=== PATIENT | male | born 1945 | race Caucasian/White ===

== ENCOUNTER 2017-08-05 06:23 | Emergency (ER) | payer OTHER ==
[~2017-08-05] VITALS: Ht 177.8 cm; Wt 77.1 kg
[~2017-08-05 06:23] MED LIST: ASPI81CH PO; Carbamazepine200 MG PO; Hydrochloroth12.5 MG PO; LISI20 PO; Norco 5-325 Ta1 EACH PO; Pravastatin Sod20 MG PO; Ultram50 MG PO
[2017-08-05] MEDS ORDERED: Cheratussin AC118 ML PO (08:33)
== END 2017-08-05 08:41 | disposition home or self-care (01) ==
LOC: ER 06:23
DX: J20.9 Acute bronchitis, unspecified (principal); I10 Essential (primary) hypertension; G40.909 Epilepsy, unspecified, not intractable, without status epilepticus; Z79.899 Other long term (current) drug therapy; Z79.82 Long term (current) use of aspirin
CPT/HCPCS: 71046; 99283

== ENCOUNTER 2020-06-12 18:25 | Inpatient (IN) | payer OTHER ==
[~2020-06-12] VITALS: Ht 175.3 cm; Wt 89.2 kg
[~2020-06-12 18:25] MED LIST changes: -ASPI81CH PO; +ATOR80 PO; +Aspirin EC81 MG PO; +CARB200 PO; -Carbamazepine200 MG PO; +Cheratussin AC118 ML PO
[2020-06-12 19:01] LABS: BASOPHILS ABSOLUTE AUTO 0.02 K/mm3 (0.00-0.23); BASOPHILS PERCENT AUTO 0 % (0-2); EOSINOPHILS ABSOLUTE AUTO 0.09 K/mm3 (0.00-0.68); EOSINOPHILS PERCENT AUTO 1 % (0-6); Hematocrit 48.3 % (37.0-53.0); Hemoglobin 16.8 g/dL (13.5-17.5); IMMATURE GRAN ABSOLUTE AUTO 0.01 K/mm3 (0.00-0.10); IMMATURE GRAN PERCENT AUTO 0 % (0-1); LYMPHOCYTES ABSOLUTE AUTO 1.93 K/mm3 (0.84-5.20); LYMPHOCYTES PERCENT AUTO 28 % (21-46); MONOCYTES ABSOLUTE AUTO 0.53 K/mm3 (0.16-1.47); MONOCYTES PERCENT AUTO 8 % (4-13); Mean Corpuscular HGB 31.4 pg (26.0-34.0); Mean Corpuscular HGB Conc 34.8 g/dL (31.5-36.5); Mean Corpuscular Volume 90 fL (80-100); Mean Platelet Volume 8.8 fL (9.1-12.4); NEUTROPHILS ABSOLUTE AUTO 4.26 K/mm3 (1.96-9.15); NEUTROPHILS PERCENT AUTO 62 % (41-73); Platelet Count 252 K/mm3 (150-400); RDW Coefficient Variation 11.7 % (11.7-14.2); RDW Standard Deviation 38.5 fL (35.1-46.3); Red Blood Cell Count 5.35 M/mm3 (4.30-5.90); White Blood Cell Count 6.84 K/mm3 (4.00-11.30)
[2020-06-12 19:21] LABS: Alanine Aminotransfer (ALT/SGP 27 U/L (12-78); Albumin, Blood 3.3 g/dL (3.4-5.0); Albumin/Globulin Ratio 0.9 (0.8-1.8); Alk Phos 92 U/L (50-136); Anion Gap 4 mmol/L (6-16); Aspartate Aminotrans (AST/SGOT 24 U/L (12-37); Bilirubin, Total 0.4 mg/dL (0.1-1.0); Blood Urea Nitrogen 13 mg/dL (8-24); Bun/Creatinine Ratio 15.1 (12.0-20.0); CO2, Blood 24 mmol/L (21-32); Calcium, Blood 9.1 mg/dL (8.5-10.1); Chloride, Blood 106 mmol/L (98-108); Creatinine, Blood 0.86 mg/dL (0.60-1.20); Globulin, Blood 3.8 g/dL (2.2-4.0); Glomerular Filtration Rate >60 (60-); Glucose, Blood 146 mg/dL (70-99); Potassium, Blood 4.4 mmol/L (3.5-5.5); Sodium, Blood 134 mmol/L (136-145); Total Protein, Blood 7.1 g/dL (6.4-8.2)
[2020-06-12 20:48] LABS: Magnesium, Blood 2.3 mg/dL (1.6-2.4); Phosphorus, Blood 2.2 mg/dL (2.5-4.9); Troponin I <0.015 ng/mL (0.000-0.040)
[2020-06-13] MEDS ORDERED: ATOR20 PO (01:57)
[2020-06-13] MEDS ORDERED: ABAT250V (01:58)
--- NOTE | 2020-06-13 06:18 | NUR ---
SHIFT SUMMARY NEW ER ADMIT THIS SHIFT (0235), A&O X4, COOPERATIVE W/CARE, ST BY ASSIST D/T SOB W/ACTIVITY, CALLS APPROP, SLEPT T/O THE NIGHT WAKING W/PERIODS OF DRY COUGHING, MEDICATED PER JUL FOR COUGH,SLEEPING AT THIS TIME, CALL LIGHT IN REACH, WILL CONT TO MONITOR UNTIL REPORT GIVEN TO DAY RN.
--- NOTE | 2020-06-13 17:22 | NUR ---
SHIFT SUMMARY PT HAS HAD NO COMPLAINTS OF SHORTNESS OF BREATH THIS SHIFT. TESSALON PERLES GIVEN FOR COUGH. PT HAS PLAN FOR THORACENTESIS TOMORROW. PT ON ROOM AIR. RIGHT EYE RED WITH SECRETIONS, CAUSING EYE TO BE MATTED. DR. GOMEZ WAS CALLED AND ANTIBIOTIC OINTMENT ORDERED TO START THIS EVENING. NO ACUTE CHANGES THIS SHIFT. CALL LIGHT IN REACH. WILL CONTINUE TO MONITOR AND REPORT TO ONCOMING RN.
--- NOTE | 2020-06-13 17:59 | NUR ---
ADMIT: 06/12/20 DISCHARGE: DX: lung mass CC: cpeabody ALECIA CALL: Call Dario at home for transition of care and follow up appointment RESIDENCE: home, CAREGIVER: Everettea contact: MATTHEW CARDENAS (CHILD) lives next door, available to help if needed. DX: htn, epilepsy, insomnia, hernia, hyperlipidemia, lung mass DME: no record CCM: no record HOME HEALTH: no record SUMMARY: Admit 06/12/20 06/13/[address] Vallejo, scheduled for Thorensentisis Friday, expects discharge home after procedure. Met with Dario in his room, lives alone but has natural support of daughter that lives next door. He does not require any mobility equipment, drives, shops. Provides his own self care. Discussed ALECIA and care coordination. Did not identify any needs at this time. Left him with discharge information, [facility] to call or Friday. Daughter will pick him up from hospital. IMPRESSION: 1. 10 x 6 x 6 cm subcarinal mass extending into the right hilum with postobstructive right lower lobe pneumonia and large right pleural effusion. We will consult Pulmonology for further workup. The patient started on Rocephin and Zithromax and BD protocol.
--- NOTE | 2020-06-14 04:08 | NUR ---
SHIFT SUMMARY ADMITTED FOR LUNG MASS/SOB. ALSO FOUND TO HAVE A RT LUNG PE. FULL CODE. PLAN IS FOR THORACENTESIS. THEN POSSIBLE DC HOME. PLAN IS TO FOLLOW UP RE: LUNG MASS OUTPT. PT EXPRESSES TO ME THAT HE IS FEELING ANXIOUS. I HAVE PROCURED A ONE TIME ORDER FOR ANXIETY MEDICATION FOR HIS ANXIETY. EYE GEL APPLIED DIRECTED.
[2020-06-14 07:24] LABS: International Normalized Ratio 0.98; Prothrombin Time Results 10.5 Sec (9.7-11.5)
[2020-06-14 10:24] LABS: Automated BF RBC Count 0.011 M/mm3 (0-0); Automated BF WBC Count 1.423 K/mm3 (0-999); Body Fluid WBC Count 1423 /mm3 (0-999); RBC Count, Body Fluid 11000 /mm3 (0-0)
[2020-06-14 10:47] LABS: Protein, Body Fluid 4.3 g/dL
[2020-06-14 10:52] LABS: Cholesterol, Body Fluid 77 mg/dL
[2020-06-14 10:53] LABS: Glucose, Body Fluid 149 mg/dL
[2020-06-14 10:59] LABS: pH, Body Fluid 7.9
[2020-06-14 11:20] LABS: Total Cell Count, Body Fluid 100
[2020-06-14 11:21] LABS: Color, Body Fluid Yellow (None-Yellow)
[2020-06-14 11:22] LABS: Appearance, Body Fluid Cloudy (Clear)
[2020-06-14] MEDS ORDERED: AZIT250 PO (11:47)
[2020-06-14] MEDS ORDERED: BENZ100A PO (11:48)
[2020-06-14] MEDS ORDERED: ERYT.5TO RIGHTEYE (11:49)
[2020-06-14] MEDS ORDERED: CEFD300 PO (11:50)
--- NOTE | 2020-06-14 12:06 | NUR ---
DISCHARGE INSTRUCTIONS REVIEWED WITH PATIENT. ALL QUESTIONS ANSWERED. IV REMOVED. PATIENT TO HAVE F/U APPOINTMENTS WITH HIS PCP AND PULMONOLOGY S/P DISCHARGE. PATIENT IS IN HIS ROOM PREPPING FOR DISCHARGE AT THIS TIME.
--- NOTE | 2020-06-14 12:54 | NUR ---
PATIENT DISCHARGED HOME AT 1240. i ESCORTED PATIENT TO THE PATIENT ENTERENCE VIA WHEELCHAIR. SON TO TRANSPORT HOME.
--- NOTE | 2020-06-14 13:39 | NUR ---
SUMMARY: Admit 06/12/20 06/14/20 Discharge home today, Danica kim, has family to pick him up. Did not identify any discharge needs. Pamela will call Dario at home Th or Fri for transition of care and follow up appointment.
== END 2020-06-14 12:53 | disposition home or self-care (01) | DRG 194 ==
LOC: ER 18:25 → MEDS 06-13 01:24
PROVIDERS: Emergency Medicine; Family Medicine; Internal Medicine Critical Care Medicine; Physician Assistant; ADMIT Family Medicine
PROC: 0W993ZX Drainage of Right Pleural Cavity, Percutaneous Approach, Diagnostic (ICD-10-PCS; principal; 2020-06-14)
DX: J18.9 Pneumonia, unspecified organism (principal); E87.1 Hypo-osmolality and hyponatremia; C34.01 Malignant neoplasm of right main bronchus; J91.0 Malignant pleural effusion; Z20.822 Contact with and (suspected) exposure to COVID-19; G40.909 Epilepsy, unspecified, not intractable, without status epilepticus; E78.5 Hyperlipidemia, unspecified; H10.31 Unspecified acute conjunctivitis, right eye; I11.0 Hypertensive heart disease with heart failure; I50.9 Heart failure, unspecified; Z87.891 Personal history of nicotine dependence
CPT/HCPCS: 32555; 36415; 71045; 71260; 80053; 82465; 82945; 83735; 83880; 83986; 84100; 84157; 84484; 85025; 85379; 85610; 85730; 87070; 87205; 88108; 88305; 88341; 88342; 89051; 93005; 93010; 93970; 96374; 99284-25; A9270; J0696; J2060; J7050; Q2038; Q9967

== ENCOUNTER 2020-06-20 03:18 | Observation (INO) | payer OTHER ==
[~2020-06-20] VITALS: Ht 175.3 cm; Wt 89.1 kg
[~2020-06-20 03:18] MED LIST changes: +ABAT250V; +ATOR20 PO; +AZIT250 PO; +BENZ100A PO; +CEFD300 PO; +ERYT.5TO RIGHTEYE
[2020-06-20 04:31] LABS: BASOPHILS ABSOLUTE AUTO 0.03 K/mm3 (0.00-0.23); BASOPHILS PERCENT AUTO 1 % (0-2); EOSINOPHILS ABSOLUTE AUTO 0.07 K/mm3 (0.00-0.68); EOSINOPHILS PERCENT AUTO 1 % (0-6); Hematocrit 47.7 % (37.0-53.0); Hemoglobin 16.5 g/dL (13.5-17.5); IMMATURE GRAN ABSOLUTE AUTO 0.01 K/mm3 (0.00-0.10); IMMATURE GRAN PERCENT AUTO 0 % (0-1); LYMPHOCYTES PERCENT AUTO 27 % (21-46); MONOCYTES ABSOLUTE AUTO 0.45 K/mm3 (0.16-1.47); MONOCYTES PERCENT AUTO 8 % (4-13); Mean Corpuscular HGB 31.1 pg (26.0-34.0); Mean Corpuscular HGB Conc 34.6 g/dL (31.5-36.5); Mean Corpuscular Volume 90 fL (80-100); Mean Platelet Volume 8.8 fL (9.1-12.4); NEUTROPHILS ABSOLUTE AUTO 3.51 K/mm3 (1.96-9.15); NEUTROPHILS PERCENT AUTO 63 % (41-73); Platelet Count 298 K/mm3 (150-400); RDW Coefficient Variation 11.6 % (11.7-14.2); RDW Standard Deviation 38.6 fL (35.1-46.3); White Blood Cell Count 5.57 K/mm3 (4.00-11.30)
[2020-06-20 04:48] LABS: Alanine Aminotransfer (ALT/SGP 40 U/L (12-78); Albumin, Blood 3.3 g/dL (3.4-5.0); Albumin/Globulin Ratio 0.8 (0.8-1.8); Alk Phos 91 U/L (50-136); Anion Gap 6 mmol/L (6-16); Aspartate Aminotrans (AST/SGOT 32 U/L (12-37); Bilirubin, Total 0.4 mg/dL (0.1-1.0); Blood Urea Nitrogen 12 mg/dL (8-24); Bun/Creatinine Ratio 14.3 (12.0-20.0); CO2, Blood 24 mmol/L (21-32); Calcium, Blood 9.2 mg/dL (8.5-10.1); Chloride, Blood 105 mmol/L (98-108); Creatinine, Blood 0.84 mg/dL (0.60-1.20); Globulin, Blood 4.2 g/dL (2.2-4.0); Glomerular Filtration Rate >60 (60-); Glucose, Blood 118 mg/dL (70-99); Magnesium, Blood 2.2 mg/dL (1.6-2.4); Potassium, Blood 4.6 mmol/L (3.5-5.5); Sodium, Blood 135 mmol/L (136-145); Total Protein, Blood 7.5 g/dL (6.4-8.2)
[2020-06-20 16:03] LABS: Influenza A, PCR Negative (NEGATIVE); Influenza B, PCR Negative (NEGATIVE); Resp Syncytial Virus, PCR Negative (NEGATIVE); SARS-Cov-2 (COVID-19) PCR, MMC Negative (NEGATIVE)
--- NOTE | 2020-06-20 16:44 | NUR ---
ADMIT: 06/20/20 DISCHARGE: DX: Dysphagia & Lung mass CC: cpeabody ALECIA CALL: call pt at home RESIDENCE: Home by self CAREGIVER: DEVIN CONTACT: MATTHEW CARDENAS (CHILD) LIVES NEXT DOOR, AVAILABLE TO HELP IF NEEDED. HOME PHONE: DX: Small cell carcinoma, pneumonia, HTN, epilepsy, see list DME: no record CCM: no record HOME HEALTH: no record SUMMARY: Admit 06/20/20 06/20/[address] John today. No eta for discharge at this time. 1. A 74-year-old male coming in with inability to keep food and fluids down, nausea, vomiting. This occurs in the setting of a recently diagnosed lung mass, with a mediastinal component, which could be compressing the esophagus. 2. Pathology shows small cell carcinoma. 3. Apparent history of atrial fibrillation. 4. History of hypertension and epilepsy. PLAN: 1. N.p.o., fluids, pain management. 2. GI consult for consideration of upper endoscopy for further workup of his dysphagia and inability to keep food and fluids down. 3. Supportive measures. 4. Expect less than 2 days observation. 5. Full code status. 6. SCDs for DVT prophylaxis for possible interventions. ADMIT 06/12/20 06/14/20 DISCHARGE HOME TODAY, CHRISTIANO GORDON, HAS FAMILY TO PICK HIM UP. DID NOT IDENTIFY ANY DISCHARGE NEEDS.
--- NOTE | 2020-06-20 17:28 | NUR ---
06/20/20 1728 OMAIRA TRAVIS History, Chart, Medications and Allergies reviewed before start of procedure. 3-LEAD EKG REVIEWED WITH PHYSICIAN PRIOR TO START OF PROCEDURE. MONITOR INTACT WITH CONTINUOUS PULSE OXIMETRY AND INTERMITTENT BP. O2 VIA N/C INTACT THROUGHOUT SEDATION/PROCEDURE. PATIENT DETERMINED TO BE ASA APPROPRIATE FOR PROPOFOL SEDATION PRIOR TO START OF PROCEDURE BY DR. ESPOSITO.
--- NOTE | 2020-06-20 18:28 | NUR ---
SHIFT SUMMARY PT ARRIVED FROM ER AROUND 1PM. DENIES PAIN. NO NAUSEA, BUT EVERYTHING HE SWALLOWS COMES RIGHT BACK UP. TELE SHOWING NSR. PT NPO. INDEP TO BR. WENT TO ENDOSCOPY AT 1630 BUT HASN'T RETURNED YET. AWAITING HIS RETURN, HE HAD TO HAVE PROCEDURE DONE IN OR INSTEADY OF DAY SURGERY DUE TO NOT TOLERATING CONSCIOUS SEDATION PER RN PHONE CALL.
--- NOTE | 2020-06-20 18:42 | NUR ---
06/20/20 1842 OMAIRA TRAVIS History, Chart, Medications and Allergies reviewed before start of procedure. 3-LEAD EKG REVIEWED WITH PHYSICIAN PRIOR TO START OF PROCEDURE. MONITOR INTACT WITH CONTINUOUS PULSE OXIMETRY AND INTERMITTENT BP. O2 VIA N/C INTACT THROUGHOUT SEDATION/PROCEDURE. GENERAL ANESTHESIA WITH DR. RODRIGUEZ.
--- NOTE | 2020-06-21 02:42 | NUR ---
06/20/201999 Pt returned from EDG via bed. Awake and alert. Denies any discomfort or other s/s. Vitals stable. Taking sips of water and juice well. He called his family to update them on status. IV fluids restarted per MD order. Meds to be liquid form or crushed and RN spoke with Pharmacist about this order.
--- NOTE | 2020-06-21 05:29 | NUR ---
06/21/20 0510 PT AWAKE AND TAKING LIQUIDS WITHOUT PROBLEMS. OCC. COUGH THIS SHIFT BUT PT STATES HE HAS A CHRONIC COUGH. VITALS STABLE. HEART MONITOR STABLE. BREATH SOUNDS CLEAR.
[2020-06-21 05:40] LABS: BASOPHILS ABSOLUTE AUTO 0.01 K/mm3 (0.00-0.23); BASOPHILS PERCENT AUTO 0 % (0-2); EOSINOPHILS ABSOLUTE AUTO 0.02 K/mm3 (0.00-0.68); EOSINOPHILS PERCENT AUTO 0 % (0-6); Hematocrit 45.2 % (37.0-53.0); Hemoglobin 14.9 g/dL (13.5-17.5); IMMATURE GRAN ABSOLUTE AUTO 0.01 K/mm3 (0.00-0.10); IMMATURE GRAN PERCENT AUTO 0 % (0-1); LYMPHOCYTES ABSOLUTE AUTO 1.46 K/mm3 (0.84-5.20); LYMPHOCYTES PERCENT AUTO 28 % (21-46); MONOCYTES ABSOLUTE AUTO 0.42 K/mm3 (0.16-1.47); MONOCYTES PERCENT AUTO 8 % (4-13); Mean Corpuscular HGB 30.5 pg (26.0-34.0); Mean Corpuscular Volume 93 fL (80-100); Mean Platelet Volume 8.8 fL (9.1-12.4); NEUTROPHILS ABSOLUTE AUTO 3.39 K/mm3 (1.96-9.15); NEUTROPHILS PERCENT AUTO 64 % (41-73); Platelet Count 255 K/mm3 (150-400); RDW Coefficient Variation 11.5 % (11.7-14.2); RDW Standard Deviation 39.2 fL (35.1-46.3); Red Blood Cell Count 4.88 M/mm3 (4.30-5.90); White Blood Cell Count 5.31 K/mm3 (4.00-11.30)
[2020-06-21 06:21] LABS: Alanine Aminotransfer (ALT/SGP 36 U/L (12-78); Albumin, Blood 2.9 g/dL (3.4-5.0); Albumin/Globulin Ratio 0.8 (0.8-1.8); Alk Phos 82 U/L (50-136); Anion Gap 9 mmol/L (6-16); Aspartate Aminotrans (AST/SGOT 28 U/L (12-37); Bilirubin, Total 0.5 mg/dL (0.1-1.0); Blood Urea Nitrogen 10 mg/dL (8-24); Bun/Creatinine Ratio 11.4 (12.0-20.0); CO2, Blood 22 mmol/L (21-32); Calcium, Blood 8.3 mg/dL (8.5-10.1); Chloride, Blood 105 mmol/L (98-108); Creatinine, Blood 0.88 mg/dL (0.60-1.20); Globulin, Blood 3.5 g/dL (2.2-4.0); Glomerular Filtration Rate >60 (60-); Glucose, Blood 94 mg/dL (70-99); Potassium, Blood 4.8 mmol/L (3.5-5.5); Sodium, Blood 136 mmol/L (136-145); Total Protein, Blood 6.4 g/dL (6.4-8.2)
[2020-06-21] MEDS ORDERED: LOSA50 PO (14:54)
--- NOTE | 2020-06-21 16:05 | NUR ---
DISCHARGE SUMMARY MEDS FAXED TO [facility] IN [place]. PIV REMOVED. PAPERWORK GONE OVER, EDUCATED ON FULL LIQUID DIET AND PILL GEOSPATIAL INFORMATION TECHNOLOGIST GIVEN TO PT. FOLLOW UPS WITH PULMONOLOGY AND ONCOLOGY MADE FOR PT AND HE IS INFORMED OF TIME AND DATE. [facility] WILL CONTACT HIM TO SCHEDULE. NOTE: PT HAD FULL REGULAR LUNCH PER VERBAL ORDER FROM DR CHACON, AND HE CHEWED ALL FOOD VERY THOROUGHLY AND DIDN'T HAVE PROBLEMS. RECEIVED PHONE CALL FROM DR CHACON AT 1400 STATING PT NEEDS TO GO BACK ON FULL LIQUID DIET PER DR HERNANDEZ'S OR NOTE AND BE DISCHARGED ON THIS DIET. PT AWARE.
--- NOTE | 2020-06-21 17:34 | NUR ---
SUMMARY: Admit 06/20/20 Discharge 06/21/20 Home with family support if needed. Has ride home and available to the pharmacy if needed. Follow up appointment with [facility] in 1 week. [place] will contact by phone or Friday. Did not identify any care coordiantion needed at this time. Expecting [place] follow up call. Appt with Dr Vega Jul 04 2:[address] Diaz Jun 29 2:45.
== END 2020-06-21 15:24 | disposition home or self-care (01) ==
LOC: ER 03:18 → ERHOLD 03:19 → MEDS 03:19 → ERHOLD 03:19 → MEDS 12:53
PROVIDERS: Emergency Medicine; Internal Medicine Gastroenterology; ADMIT Internal Medicine
PROC: 0DC98ZZ Extirpation of Matter from Duodenum, Via Natural or Artificial Opening Endoscopic (ICD-10-PCS; principal; 2020-06-20 16:00)
DX: K22.2 Esophageal obstruction (principal); T18.128A Food in esophagus causing other injury, initial encounter; C34.01 Malignant neoplasm of right main bronchus; R59.0 Localized enlarged lymph nodes; G40.909 Epilepsy, unspecified, not intractable, without status epilepticus; I11.0 Hypertensive heart disease with heart failure; I50.9 Heart failure, unspecified; E78.5 Hyperlipidemia, unspecified; I48.91 Unspecified atrial fibrillation; E87.1 Hypo-osmolality and hyponatremia; X58.XXXA Exposure to other specified factors, initial encounter; Z20.822 Contact with and (suspected) exposure to COVID-19; Z87.891 Personal history of nicotine dependence; Z79.82 Long term (current) use of aspirin; Z79.899 Other long term (current) drug therapy
CPT/HCPCS: 0241U; 36415; 80053; 82947; 83690; 83735; 85025; 96361; 96374; 96375; 96376; 99285-25; A9270; G0378; J0330; J1430; J1610; J2370; J2405; J2704; J3010; J7030; J7120

== ENCOUNTER 2020-07-14 13:26 | Day surgery (SDC) | payer OTHER ==
[~2020-07-14] VITALS: Ht 175.3 cm; Wt 87.3 kg
[~2020-07-14 13:26] MED LIST changes: +LOSA50 PO
--- NOTE | 2020-07-14 14:23 | NUR ---
PT INTO SDS VIA W/C. History, Chart, Medications and Allergies reviewed before start of procedure. Lungs clear T/O to Auscultation. Patient confirms NPO status and agrees with scheduled surgery. Patient States Post-Procedure ride home has been arranged.
--- NOTE | 2020-07-14 17:29 | NUR ---
Patient up to Ambulate independently. Gait steady. Discharge instructions reviewed with patient. Patient verbalizes understanding. Copy given to patient to take home. Discharged via wheelchair to private car for ride home.
== END 2020-07-14 18:00 | disposition home or self-care (01) ==
LOC: ORSCMMR 13:26 → SURS 18:00
PROVIDERS: Surgery
PROC: 0B9N30Z Drainage of Right Pleura with Drainage Device, Percutaneous Approach (ICD-10-PCS; principal; 2020-07-14 14:00)
DX: C34.90 Malignant neoplasm of unspecified part of unspecified bronchus or lung (principal); J91.0 Malignant pleural effusion; I10 Essential (primary) hypertension; K21.9 Gastro-esophageal reflux disease without esophagitis; Z87.891 Personal history of nicotine dependence; Z79.899 Other long term (current) drug therapy; Z79.82 Long term (current) use of aspirin
CPT/HCPCS: 71045; C1729; J2250; J3010; J7120

== ENCOUNTER 2020-07-24 23:11 | Inpatient (IN) | payer OTHER, MEDICARE ==
[~2020-07-24] VITALS: Ht 175.3 cm; Wt 78.4 kg
[2020-07-24 23:35] LABS: BASOPHILS ABSOLUTE AUTO 0.01 K/mm3 (0.00-0.23); BASOPHILS PERCENT AUTO 1 % (0-2); Hematocrit 45.4 % (37.0-53.0); Hemoglobin 15.6 g/dL (13.5-17.5); LYMPHOCYTES ABSOLUTE AUTO 1.12 K/mm3 (0.84-5.20); LYMPHOCYTES PERCENT AUTO 61 % (21-46); MONOCYTES PERCENT AUTO 11 % (4-13); Mean Corpuscular HGB 30.2 pg (26.0-34.0); Mean Corpuscular HGB Conc 34.4 g/dL (31.5-36.5); Mean Corpuscular Volume 88 fL (80-100); Mean Platelet Volume 11.2 fL (9.1-12.4); NRBC ABSOLUTE 0.02 K/mm3 (0.00-0.02); NRBC Auto 1.1 /100 WBC (0.0-0.2); RDW Coefficient Variation 11.6 % (11.7-14.2); RDW Standard Deviation 37.4 fL (35.1-46.3); Red Blood Cell Count 5.16 M/mm3 (4.30-5.90); White Blood Cell Count 1.85 K/mm3 (4.00-11.30)
[2020-07-24] MEDS ORDERED: DEXA4 PO (23:35)
[2020-07-24] MEDS ORDERED: Ventolin/Prove6.7 GM INH (23:36)
[2020-07-24 23:37] LABS: EOSINOPHILS PERCENT AUTO 0 % (0-6); IMMATURE GRAN ABSOLUTE AUTO 0.01 K/mm3 (0.00-0.10); IMMATURE GRAN PERCENT AUTO 1 % (0-1); NEUTROPHILS ABSOLUTE AUTO 0.51 K/mm3 (1.96-9.15); NEUTROPHILS PERCENT AUTO 28 % (41-73); Platelet Count 49 K/mm3 (150-400)
[2020-07-24] MEDS ORDERED: BUSPIRONE HCL5 M1 PO (23:37)
[2020-07-24 23:51] LABS: Alanine Aminotransfer (ALT/SGP 217 U/L (12-78); Albumin, Blood 2.2 g/dL (3.4-5.0); Albumin/Globulin Ratio 0.5 (0.8-1.8); Alk Phos 195 U/L (50-136); Anion Gap 10 mmol/L (6-16); Aspartate Aminotrans (AST/SGOT 213 U/L (12-37); Bilirubin, Total 0.8 mg/dL (0.1-1.0); Blood Urea Nitrogen 16 mg/dL (8-24); Bun/Creatinine Ratio 19.7 (12.0-20.0); CO2, Blood 25 mmol/L (21-32); Calcium, Blood 8.1 mg/dL (8.5-10.1); Chloride, Blood 106 mmol/L (98-108); Creatinine, Blood 0.81 mg/dL (0.60-1.20); Globulin, Blood 4.3 g/dL (2.2-4.0); Glomerular Filtration Rate >60 (60-); Glucose, Blood 142 mg/dL (70-99); Potassium, Blood 3.7 mmol/L (3.5-5.5); Sodium, Blood 141 mmol/L (136-145); Total Protein, Blood 6.5 g/dL (6.4-8.2); Troponin I 0.083 ng/mL (0.000-0.040)
[2020-07-24 23:56] LABS: International Normalized Ratio 1.4; Prothrombin Time Results 14.7 Sec (9.7-11.5)
[2020-07-25 01:36] LABS: Influenza A, PCR NEGATIVE (NEGATIVE); Influenza B, PCR NEGATIVE (NEGATIVE); Resp Syncytial Virus, PCR NEGATIVE (NEGATIVE); SARS-Cov-2 (COVID-19) PCR, MMC NEGATIVE (NEGATIVE)
--- NOTE | 2020-07-25 04:30 | NUR ---
ANTIBIOTICS PREVIOSLY ORDERED IN ER, HAD NOT BEEN GIVEN DUE TO DIFFICULT IV ACCESS. PT ARRIVES TO ICU AND DR GANDHI STATES TO DC ANTIBIOTICS AT THIS TIME.
--- NOTE | 2020-07-25 05:39 | NUR ---
ADMIT PT ARRIVES TO ICU 8 AT 0315 FROM ED VIA GURNEY. PT AWAKE, ALERT, ORIENTED X4, PT APPEARS DYSPNEIC ON ARRIVAL, ON 12L/MIN O2 VIA NON-REBREATHER, SPO2 98%. MONITOR SHOWING SINUS TACHYCARDIA WITH HR 110'S, SBP STABLE. PLEURX DRAIN IN PLACE TO RIGHT CHEST - PT STATES THIS IS DRAINED APPROX 1 L ON EVERY FRIDAY, FRIDAY AND FRIDAY. WAS JUST DRAINED YESTERDAY BY HIS DAUGHTER. GAUZE DRESSING IN PLACE, C/D/I. LUNG SOUNDS CLEAR T/O. ABDOMEN SOFT, NON-TENDER, BT'S X4. SUN PLACED, DRAINING ONEIL/PINK URINE TO GRAVITY. POWERGLIDE PLACED TO FELICIA - NS INFUSING AT 75ML/HR AND HEPARIN GTT AT 15 UNITS/KG PER ORDERS. SKIN OVERALL C/D/I. PLAN FOR ECHO THIS AM AND CONSULT DR. Meehan. PT DENIES PAIN, OTHER NEEDS AT THIS TIME. WILL CONTINUE TO MONITOR PT AND GIVE HANDOFF REPORT TO ONCOMING SHIFT.
--- NOTE | 2020-07-25 08:03 | NUR ---
echocardiogram complete
[2020-07-25 08:06] LABS: Source, Urine Catheter
[2020-07-25 08:12] LABS: Appearance, Urine Clear (Clear); Bilirubin, Urine Neg (Neg); Blood, Urine 1+ (Neg); Color, Urine Yellow (P-Yellow); Glucose Qualitative, Urine Neg (Neg); Ketones, Urine 1+ (Neg); Leukocyte Esterase, Urine 1+ (Neg); Nitrite, Urine Neg (Neg); Protein, Urine 2+ (Neg); Specific Gravity, Urine 1.005 (1.003-1.022); Urobilinogen, Urine 1+ (Normal)
[2020-07-25 08:23] LABS: Bacteria Rare /hpf; Red Blood Cells, Urine 0-2 /hpf (0-2); Squamous Epithelial Cells Rare /hpf (Few); White Blood Cells, Urine 0-2 /hpf (0-5)
--- NOTE | 2020-07-25 08:30 | NUR ---
ASSUMED CARE BEDSIDE REPORT RECIEVED. PT IS LAYING IN BED RESTING QUIETLY. PT AWAKENS TO VERBAL STIMULI. PT IS ALERT AND ORIENTED WHEN AWAKE. PT IS TALKATIVE AND EXPRESSES SOME ANXIETY ABOUT PLAN OF CARE. REASSURANCE PROVIDED. PT ON 8L O2 VIA OXYMIZER. VITAL SIGNS STABLE. POWERGLIDE TO FELICIA C/D/I. HEPARIN GTT INFUSING AT 15 UNITS/KG/HR AND NS AT 75 ML/HR. PT WITH COARSE LS AND LABORED BREATHING. NS PAUSED AT THIS TIME. PT WITH PLEURX DRAIN TO RIGHT CHEST NOTED, DRESSING C/D/I. PT WITH SUN IN PLACE, PT COMPLAINING OF BURING SENSATION AND URGE TO PUSH WHEN URINATING. SUN IRRIGATED WITHOUT DIFFICULTY. LEAKING NOTED AROUND SUN AND URETHRA. SUN DC'D AT THIS TIME. PT REQUESTS NOT TO HAVE NEW SUN PLACED AT THIS TIME. DR ELLIS NOTIFIED OF LS AND STOPPING FLUIDS. ORDERS RECIEVED TO CONSULT PULMONOLOGY. WILL CONTINUE TO MONITOR.
[2020-07-25 08:37] LABS: Hematocrit 35.5 % (37.0-53.0); Hemoglobin 12.4 g/dL (13.5-17.5); Mean Corpuscular HGB 30.6 pg (26.0-34.0); Mean Corpuscular HGB Conc 34.9 g/dL (31.5-36.5); Mean Corpuscular Volume 88 fL (80-100); Mean Platelet Volume 11.2 fL (9.1-12.4); RDW Coefficient Variation 11.8 % (11.7-14.2); RDW Standard Deviation 37.8 fL (35.1-46.3); Red Blood Cell Count 4.05 M/mm3 (4.30-5.90); White Blood Cell Count 1.92 K/mm3 (4.00-11.30)
[2020-07-25 08:42] LABS: Platelet Count 49 K/mm3 (150-400)
[2020-07-25 08:54] LABS: Alanine Aminotransfer (ALT/SGP 146 U/L (12-78); Albumin, Blood 1.8 g/dL (3.4-5.0); Albumin/Globulin Ratio 0.5 (0.8-1.8); Alk Phos 135 U/L (50-136); Anion Gap 7 mmol/L (6-16); Aspartate Aminotrans (AST/SGOT 114 U/L (12-37); Bilirubin, Total 0.6 mg/dL (0.1-1.0); Blood Urea Nitrogen 13 mg/dL (8-24); Bun/Creatinine Ratio 17.1 (12.0-20.0); CO2, Blood 29 mmol/L (21-32); Calcium, Blood 7.8 mg/dL (8.5-10.1); Chloride, Blood 105 mmol/L (98-108); Creatinine, Blood 0.76 mg/dL (0.60-1.20); Globulin, Blood 3.6 g/dL (2.2-4.0); Glomerular Filtration Rate >60 (60-); Glucose, Blood 113 mg/dL (70-99); Potassium, Blood 3.7 mmol/L (3.5-5.5); Sodium, Blood 141 mmol/L (136-145); Total Protein, Blood 5.4 g/dL (6.4-8.2)
[2020-07-25 09:16] LABS: BAND PERCENT MAN 10 % (0-8); BASOPHILS PERCENT MAN 0 % (0-2); EOSINOPHILS PERCENT MAN 0 % (0-6); LYMPHOCYTES PERCENT MAN 42 % (21-46); METAMYELOCYTE ABSOLUTE MAN 0.01 K/mm3 (0.00-0.00); METAMYELOCYTE PERCENT MAN 1 % (0-0); MONOCYTES ABSOLUTE MAN 0.13 K/mm3 (0.16-1.47); MONOCYTES PERCENT MAN 7 % (4-13); NEUTROPHILS ABSOLUTE MAN 0.96 K/mm3 (1.96-9.15); SEG NEUTROPHILS PERCENT MAN 40 % (41-73); TOTAL CELLS COUNTED 100
--- NOTE | 2020-07-25 12:17 | NUR ---
PLEURX DRAIN PLEURX DRAINED PER DR NUR'S ORDERS. 1000 ML OF BLOOD TINGED FLUID DRAINED TO VACU CONTAINER. PT WITH IMPROVEMENT IN SPO2. O2 REQUIREMENTS DECREASED TO 4L O2 VIA OXYMIZER AT THIS TIME. WILL CONTINUE TO MONITOR.
--- NOTE | 2020-07-25 14:05 | NUR ---
CARE COORDINATION REFERRAL - ADMIT: 07/25/20 DISCHARGE: DX: SHORTNESS OF BREATH CC: KWILCOX ADMIT: 06/20/20 DISCHARGE: 06/21/20 DX: DYSPHAGIA & LUNG MASS CC: CPEABODY ALECIA CALL: RESIDENCE: HOME CAREGIVER: SELF,DEVIN CONTACT: MATTHEW CARDENAS (CHILD) LIVES NEXT DOOR, AVAILABLE TO HELP IF NEEDED. DX: SMALL CELL CARCINOMA, PNEUMONIA, HTN, EPILEPSY, SEE LIST DME: NONE CCM: NONE HOME HEALTH: NONE
--- NOTE | 2020-07-25 16:54 | NUR ---
echocardiogram complete
--- NOTE | 2020-07-25 18:36 | NUR ---
SHIFT SUMMARY/DECOMPENSATION IN NETWORK DIAGNOSTIC SUPPORT SPECIALIST THIS RN CALLED TO NETWORK DIAGNOSTIC SUPPORT SPECIALIST FOR ASSISTANCE AROUND 1400. PT WITH RESPIRATORY DECOMPENSATION DURING PROCEDURE REQUIRING BIPAP PLACEMENT. PT ALSO BECAME HYPOTENSIVE REQUIRING IV PUSH NEOSYNEPHRINE GIVEN BY NETWORK DIAGNOSTIC SUPPORT SPECIALIST STAFF. PT TRANSFERED BACK TO ICU ROOM AT 1500. PT WITH RIGHT GROIN ACCESS SITE WITH DRESSING AND GAUZE IN PLACE. SMALL OOZING NOTED TO DRESSING. PT REMAINS ON BIPAP AT THIS TIME SETTINGS 10/5, FIO2 TITRATED DOWN TO 40%. PT IS SOMNOLENT, BUT IS AROUSABLE TO VERBAL STIMULI. PT MOANS OUT AT TIMES. PICC LINE PLACED TO FELICIA. NS BOLUS INFUSING AND NEOSYNEPHRINE GTT TITRATED UP TO 100 MCG/MIN AT THIS TIME. VITAL SIGNS STABLE AT THIS TIME. DR NUR AND DR DIXON HAVE SEEN PT AFTER RETURN FROM NETWORK DIAGNOSTIC SUPPORT SPECIALIST AND HAVE UPDATED PT DAUGHTER AT BEDSIDE. WILL CONTINUE TO MONITOR AND REPORT OFF TO ONCOMING RN.
[2020-07-25 19:49] LABS: Hematocrit 31.5 % (37.0-53.0)
[2020-07-26 06:39] LABS: BASOPHILS ABSOLUTE AUTO 0.03 K/mm3 (0.00-0.23); BASOPHILS PERCENT AUTO 1 % (0-2); EOSINOPHILS PERCENT AUTO 0 % (0-6); Hematocrit 31.6 % (37.0-53.0); Hemoglobin 10.7 g/dL (13.5-17.5); IMMATURE GRAN ABSOLUTE AUTO 0.21 K/mm3 (0.00-0.10); IMMATURE GRAN PERCENT AUTO 6 % (0-1); LYMPHOCYTES ABSOLUTE AUTO 1.03 K/mm3 (0.84-5.20); LYMPHOCYTES PERCENT AUTO 29 % (21-46); MONOCYTES ABSOLUTE AUTO 0.32 K/mm3 (0.16-1.47); MONOCYTES PERCENT AUTO 9 % (4-13); Mean Corpuscular HGB 30.3 pg (26.0-34.0); Mean Corpuscular HGB Conc 33.9 g/dL (31.5-36.5); Mean Corpuscular Volume 90 fL (80-100); Mean Platelet Volume 11.2 fL (9.1-12.4); NEUTROPHILS ABSOLUTE AUTO 2.01 K/mm3 (1.96-9.15); NEUTROPHILS PERCENT AUTO 56 % (41-73); NRBC ABSOLUTE 0.04 K/mm3 (0.00-0.02); NRBC Auto 1.1 /100 WBC (0.0-0.2); Platelet Count 73 K/mm3 (150-400); RDW Coefficient Variation 12.2 % (11.7-14.2); RDW Standard Deviation 39.7 fL (35.1-46.3); Red Blood Cell Count 3.53 M/mm3 (4.30-5.90)
[2020-07-26 06:44] LABS: BAND PERCENT MAN 16 % (0-8); LYMPHOCYTES ABSOLUTE MAN 0.86 K/mm3 (0.84-5.20); LYMPHOCYTES PERCENT MAN 24 % (21-46); MONOCYTES ABSOLUTE MAN 0.36 K/mm3 (0.16-1.47); MONOCYTES PERCENT MAN 10 % (4-13); MYELOCYTE ABSOLUTE MAN 0.03 K/mm3 (0.00-0.00); MYELOCYTE PERCENT MAN 1 % (0-0); NEUTROPHILS ABSOLUTE MAN 2.34 K/mm3 (1.96-9.15); SEG NEUTROPHILS PERCENT MAN 49 % (41-73)
--- NOTE | 2020-07-26 06:45 | NUR ---
SHIFT SUMMARY PATIENT SLEPT WELL THROUGH NIGHT. HAD A MOMENT OF HAVING TO INCREASE NEOSYNEPHRINE DRIP, NOW DOWN TO 40 MCG/MIN, MAINTAINING BP WELL. NO C/O PAIN. ASSESSMENT IS CHARTED. VSS. WILL CONTINUE TO MONITOR.
[2020-07-26 06:50] LABS: Alanine Aminotransfer (ALT/SGP 103 U/L (12-78); Albumin, Blood 1.4 g/dL (3.4-5.0); Albumin/Globulin Ratio 0.5 (0.8-1.8); Alk Phos 111 U/L (50-136); Anion Gap 8 mmol/L (6-16); Aspartate Aminotrans (AST/SGOT 96 U/L (12-37); Bilirubin, Total 0.5 mg/dL (0.1-1.0); Blood Urea Nitrogen 13 mg/dL (8-24); CO2, Blood 24 mmol/L (21-32); Calcium, Blood 7.1 mg/dL (8.5-10.1); Chloride, Blood 114 mmol/L (98-108); Creatinine, Blood 0.69 mg/dL (0.60-1.20); Glomerular Filtration Rate >60 (60-); Glucose, Blood 85 mg/dL (70-99); Sodium, Blood 146 mmol/L (136-145); Total Protein, Blood 4.4 g/dL (6.4-8.2)
--- NOTE | 2020-07-26 08:58 | NUR ---
ASSUMED CARE REPORT FROM MARY MYERS AT 0700. PT RESTING IN BED. ON BIPAP AT SHIFT CHANGE, 02/20 40%. PLACED ON 5L VIA NC. PT TOLERATED WELL. C/O DRY MOUTH. O2 SATS >93%. PT VERY DYSPNEIC c MINIMAL EXERTION, SOB c CONVERSATION. LUNGS CLEAR, SLIGHTLY DIMINISHED IN RIGHT LOWER LOBE. DRY COUGH. CHEST TUBE TO RIGHT LATERAL CHEST WALL. PT STATES DAUGHTER DRAINS MON, WED, FRI. PER REPORT, DRAINED YESTERDAY, 1L OUT. ABD ROUND, SOFT NON TENDER. BT X 4. PT STATES HE IS LIQUID DIET AT HOME FOR RESP STATUS. PROVIDED PO FLUIDS. DRESSING TO RIGHT GROIN, PETROLEUM AND OPSITE, SWELLING NOTED. PT STATES THIS BASELINE D/T HERNIA. TENDER TO TOUCH. MARY REPORTS SWELLING UNCHANGED. 2+ EDEMA TO LOWER EXTREMITIES. CONDOM CATH IN PLACE, ONEIL URINE OUT. PICC TO E. HEPARIN GTT AT 13.5 U/KG/HR, PHENYLEPHRINE GTT 40 MCG/MIN FOR MAP >65. CALL PLACED TO GROUND SUPPORT EQUIPMENT ASSEMBLER, NO PLANS TO RETURN AT THIS TIME. WILL CONTINUE TO MONITOR.
--- NOTE | 2020-07-26 11:43 | NUR ---
echocardiogram complete
--- NOTE | 2020-07-26 15:48 | NUR ---
Met with pt he was awake and alert he is very anxious and trying not to cry so he does not get short of breath. Pt denies headaches or ringining in his ears or dizziness. Pt denies much discomfort or pain to his back or joints. HIs chest is sore and he states it is harder to pull air in thant to exhale. he denies any nausea. States he has not been bale to sleep will for a long time. States he has a good support system from his family. [facility]. Notified chaplian of his stress.
--- NOTE | 2020-07-26 16:09 | NUR ---
07/26/20- PER CHART REVIEW, PT HAD PULMONARY EMBOLISM. ICU DOC SPOKE WITH DAUGHTER AND PT THAT PT'S CONDITION IS CRITICAL. DAUGHTER SHARED THAT PT WOULD WANT TO PURSUE TREATMENT EXCEPT INTUBATION BUT CPR IS OK. PT HAS BIPAP AND MOVED TO 5L OF O2. PT GETS SOB WITH CONVERSATION. PER DR. ELLIS, PT IS NOT READY TO D/C. HE IS CURRENTLY ON IV PRESSORS. -BEBETO
--- NOTE | 2020-07-26 17:23 | NUR ---
SHIFT SUMMARY PT HAS REMAINED ON 5L VIA NC ENTIRE SHIFT. PT DYSPNEIC AND INCREASED WOB c MINIMAL EXERSION, TURNS IN BED. O2 SATS DECREASED TO LOW 80'S, PT RECOVERS WELL c INCREASED O2 PLACED IN MOUTH. LUNGS CONTINUE TO BE DECREASED IN RIGHT LOWER LOBE. PT C/O DRY COUGH. MEDICATED c ROBUTISSIN c MINIMAL RELIEF. PHENYLEPHRINE GTT TITRATED OFF THIS SHIFT. MAP >65 AT THIS TIME. IVF D/C'D. DR ELLIS PLACED ON FLUID RESTRICTION D/T LOWER LEG EDEMA. FULL LIQUID DIET. TOLERATED WELL. CONDOM CATH REMAINS IN PLACE. 350 ML ONEIL URINE OUT. PT BOOSTED IN BED SEVERAL TIMES THIS SHIFT, REFUSED TURNS, SHIFTED HIPS. DR DIXON'S COLLEGUE ROUNDED, NO PLAN TO RETURN TO HIDE AND SKIN COLERER. HEPARIN GTT CONTINUES AT 13.5 UNITS/KG/HR. WILL CONTINUE TO MONITOR.
--- NOTE | 2020-07-26 17:49 | NUR ---
Spiritual care note: This is a jey man who admits to great fear with this illness. She spoke at length about his 's cancer schmidt and six years ago. This is "bring all that back up." He reports a linda in a loving, attentive God, and beleives in life after . He does not want to give up the fight. He has 3 dtrs and several grandkids he adores. Dario responded well to gentle residential counselor and theraputic listening. We prayed together to good effect. he appeared more calm by end of visit, and we had an easy rapport. I will remain available.
--- NOTE | 2020-07-26 20:35 | NUR ---
ASSUMED CARE AT 1900 PT IS LAYING IN BED, PLEASENT, ALERT/ORIENTED AND ABLE TO MAKE HIS NEEDS KNOWN. PT IS TACHYPNIC AND HAS TO TAKE A BREATH IN THE MIDDLE OF SENTENCES. PT SPO2 DECLINES WITH ANY AMOUNT OF MOVEMENT AND O2 IS TITRATED UP TO 10L TO HELP RECOVER. JUST LAYING IN BED, PT SPO2 >90% ON 5L; PT STRONGLY WANT TO AVOID USING BIPAP. AFIBRILE. HR 100-110. SBP 90-100; MAP >65; OTIS ON SB. HEPARIN INFUSING AT 13.5 UNITS/KG/HR. CONDOM CATH IN PLACE AND DRAINING TO GRAVITY. RT GROIN SITE SHOWS NO SIGNS OF BLEEDING OR HEMATOMA; SITE IS PAINFUL TO PALPATE BUT PT STATES THIS IS "NORMAL" BEFORE THE SURGERY DUE TO A HERNIA. PLEURX DRAIN TO RT CHEST WALL DRESSING IS C/D/I. PICC TO FELICIA PATENT. SEE SHIFT ASSESSMENT FOR FULL ASSESSMENT.
[2020-07-27 04:15] LABS: Hematocrit 28.8 % (37.0-53.0); Hemoglobin 10.2 g/dL (13.5-17.5); Mean Corpuscular HGB 30.4 pg (26.0-34.0); Mean Corpuscular HGB Conc 35.4 g/dL (31.5-36.5); Mean Corpuscular Volume 86 fL (80-100); Mean Platelet Volume 11.3 fL (9.1-12.4); NRBC ABSOLUTE 0.04 K/mm3 (0.00-0.02); NRBC Auto 1.2 /100 WBC (0.0-0.2); Platelet Count 99 K/mm3 (150-400); RDW Coefficient Variation 12.1 % (11.7-14.2); Red Blood Cell Count 3.35 M/mm3 (4.30-5.90); White Blood Cell Count 3.36 K/mm3 (4.00-11.30)
[2020-07-27 04:30] LABS: Anion Gap 10 mmol/L (6-16); Blood Urea Nitrogen 11 mg/dL (8-24); Bun/Creatinine Ratio 18.7 (12.0-20.0); CO2, Blood 24 mmol/L (21-32); Calcium, Blood 7.1 mg/dL (8.5-10.1); Chloride, Blood 111 mmol/L (98-108); Creatinine, Blood 0.59 mg/dL (0.60-1.20); Glomerular Filtration Rate >60 (60-); Glucose, Blood 127 mg/dL (70-99); Potassium, Blood 3.1 mmol/L (3.5-5.5); Sodium, Blood 145 mmol/L (136-145)
[2020-07-27 04:35] LABS: BAND PERCENT MAN 8 % (0-8); BASOPHILS PERCENT MAN 0 % (0-2); EOSINOPHILS PERCENT MAN 0 % (0-6); LYMPHOCYTES ABSOLUTE MAN 0.94 K/mm3 (0.84-5.20); LYMPHOCYTES PERCENT MAN 28 % (21-46); METAMYELOCYTE ABSOLUTE MAN 0.03 K/mm3 (0.00-0.00); METAMYELOCYTE PERCENT MAN 1 % (0-0); MONOCYTES PERCENT MAN 3 % (4-13); MYELOCYTE ABSOLUTE MAN 0.03 K/mm3 (0.00-0.00); MYELOCYTE PERCENT MAN 1 % (0-0); NEUTROPHILS ABSOLUTE MAN 2.25 K/mm3 (1.96-9.15); SEG NEUTROPHILS PERCENT MAN 59 % (41-73); TOTAL CELLS COUNTED 100
--- NOTE | 2020-07-27 04:36 | NUR ---
NOTIFIED DR DAQUAN BUTT NOTIFIED OF PT POTASSIUM LAB OF 3.1 THIS AM. NEW ORDERS PROVIDED FOR K-DUR 40 MEQ PO ONCE TIME.
--- NOTE | 2020-07-27 06:37 | NUR ---
END OF SHIFT SUMMARY PT O2 DEMANDS VARRIED T/O SHIFT REQUIRING ANYWHERE BETWEEN 6-15L HIGH FLOW NC TO BIPAP. WHEN BIPAP FIRST PLACED ON PT, HE TOLERATED THIS FOR ABOUT 30MIN AND THAN RIPED THE MASK OFF AND STATED "I CAN'T DO THIS". PT THAN BACK ON 13L HIGH FLOW. AT 0530 PT BECAME CONFUSED THINKING THAT HE COULD GET OUT OF BED, TOOK SPO2 PROBE OFF AND HIGH FLOW NC OFF. ONCE RECONNECTED SPO2 IN LOW 70'S AND PT CHANGED COLOR. BIPAP PLACED BACK ON PT WITH SETTINGS 12/5, FIO2 50%, SPO2 >90% NOW. PT TOLERATING THIS BETTER, ONLY REMOVED MASK ONCE AND THAN EDUCATED AGAIN THE IMPORTANCE OF CONT TO WEAR THE BIPAP. HR 90-115. SBP 100-130. AFIBRILE. CONDOM CATH PATENT AND DRAINING TO GRAVITY. HEPARIN INFUSING AT 14.5U/KG/HR VIA FELICIA PICC. RT FEM ACCESS SHOW NO SIGNS OF BLEEDING OR HEMATOMA. PLURX DRAIN DRESSING C/D/I. PT WAS AWAKE MOST OF THE SHIFT AND IS NOW SLEEPING WITH BIPAP MASK ON. WILL REPORT TO AM RN WHEN AVAILABLE.
--- NOTE | 2020-07-27 09:30 | NUR ---
ASSUMED CARE REPORT FROM BHAVNA MYERS AT 0700. PT RESTING IN BED AT START OF SHIFT, BIPAP IN PLACE, 04/22 40%. CHANGED PT TO 10 L VIA HIGH FLOW. PT TACHYPNIC c MINIMAL EXERTION, RATE 40-50'S, SHALLOW LABORED RESP. PT ABLE TO RECOVER c REST AND MOVING CANNULA TO MOUTH. LUNGS CLEAR THROUGHOUT. DRY COUGH. CHEST TUBE TO RIGHT LATERAL WALL, DRESSING C/D/I. PT DOES NOT TOLERATE POSITION CHANGES WELL. SLIGHTLY SHIFT HIPS AND BOOSTS IN BED FOR POSITION CHANGES. CONDOM CATH IN PLACE. PT CONTINUES TO HAVE 2+ EDEMA TO LOWER EXTREMITIES. VSS. WILL CONTINUE TO MONITOR.
--- NOTE | 2020-07-27 14:41 | NUR ---
07/27/20- PER CHART REVIEW WITH DR. ELLIS, PT IS STILL ON PRESSORS IN THE ICU. HE HAS ORDERED THAT THE P START TITRATION DOWN OFF OF THESE. PT IS TO TALK WITH ONCOLOGIST, DR. YANG, TO COME UP WITH A TREATMENT PLAN. -KJW PER CHART REVIEW, PT IS STILL IN NEED OF HIGH O2. HE IS BEING SWITCHED BETWEEN HIGH FLOW O2 AT 6-15L TO BIPAP. PT DOES NOT TOLERATE POSITIONING CHANGES AND O2 DROPS. PT STILL IN ICU. -KJW
--- NOTE | 2020-07-27 17:29 | NUR ---
SHIFT SUMMARY PT HAS REMAINED ON 10L HIGH FLOW ENTIRE SHIFT. PT HAS DYSPNEA c MINIMAL EXERTION, O2 SATS DECREASE TO LOW 80'S. RESOLVES c PT MOVING NC TO MOUTH AND INCREASING 02 TO 13-15L. LUNGS CLEAR. CONTINUES TO HAVE DRY COUGH. 1L FLUID DRAINED FROM RIGHT CHEST TUBE THIS SHIFT. PLAN TO DRAIN EOD. K REPLACED AND DIURESED THIS SHIFT, 1300 ML OUT. CONDOM CATH REMAINS IN PLACE. POOR PO INTAKE, ENCOURAGED HIGH PROTEIN LIQUIDS. BP STABLE. WILL CONTINUE TO MONITOR UNTIL REPORT TO ONCOMING NURSE.
--- NOTE | 2020-07-27 22:05 | NUR ---
ASSUMED CARE AT 1900 PT LAYING IN BED AND IS ALERT/ORIENTED AND ABLE TO MAKE HIS NEEDS KNOWN. PT CURRENTLY ON 10L HIGH FLOW NC AND TACHYPNIC; PT CANNOT FINISH A FULL SENTENCE WITHOUT TAKING A BREATH; WITH ANY AMOUNT OF EXERTION, PT SPO2 DECREASES TO THE 80'S; PT DOES NOT WANT TO WEAR BIPAP WHEN IN THE 80'S AN STATES THAT HE WILL RECOVER IN TIME AND THAT "HE WILL SURVIVE"; PT WAS DEFENSIVE WHEN DISCUSSING THE BIPAP USE LAST NIGHT BUT WAS ABLE TO CALM DOWN. AFIBRILE. HR 100-110. SBP 110-135. HEPARIN INFUSING AT 15.5 . CON[address] CATH IN PLACE AND DRAINING TO GRAVITY. RT GROIN SITE SHOWS NO SIGNS OF BLEEDING OR HEMATOMA. PLEUREX DRESSING TO RT CHEST C/D/I. SEE SHIFT ASSESSMENT FOR FULL ASSESSMENT.
[2020-07-28 04:32] LABS: Hematocrit 30.4 % (37.0-53.0); Hemoglobin 10.8 g/dL (13.5-17.5); Mean Corpuscular HGB 30.4 pg (26.0-34.0); Mean Corpuscular HGB Conc 35.5 g/dL (31.5-36.5); Mean Corpuscular Volume 86 fL (80-100); Mean Platelet Volume 10.7 fL (9.1-12.4); NRBC ABSOLUTE 0.07 K/mm3 (0.00-0.02); NRBC Auto 1.5 /100 WBC (0.0-0.2); Platelet Count 149 K/mm3 (150-400); RDW Standard Deviation 36.8 fL (35.1-46.3); Red Blood Cell Count 3.55 M/mm3 (4.30-5.90); White Blood Cell Count 4.59 K/mm3 (4.00-11.30)
[2020-07-28 04:47] LABS: Anion Gap 6 mmol/L (6-16); Blood Urea Nitrogen 12 mg/dL (8-24); Bun/Creatinine Ratio 17.2 (12.0-20.0); CO2, Blood 28 mmol/L (21-32); Calcium, Blood 7.8 mg/dL (8.5-10.1); Chloride, Blood 109 mmol/L (98-108); Glomerular Filtration Rate >60 (60-); Glucose, Blood 109 mg/dL (70-99); Magnesium, Blood 1.8 mg/dL (1.6-2.4); Phosphorus, Blood 1.9 mg/dL (2.5-4.9); Potassium, Blood 3.4 mmol/L (3.5-5.5); Sodium, Blood 143 mmol/L (136-145)
--- NOTE | 2020-07-28 05:17 | NUR ---
NOTIFIED DR KEN ROGERS CALLED ABOUT MORNING LAB LEVELS OF PHOSPHORUS 1.9, AND POTASSIUM 3.4. NEW ORDERS PROVIDED FOR POTASSIUM PHOSPHATE 500MG WITH MEALS BID, AND AN ORDER FOR 40 MEQ OF K-DUR NOW ONCE.
[2020-07-28 05:32] LABS: BAND PERCENT MAN 1 % (0-8); BASOPHILS PERCENT MAN 0 % (0-2); EOSINOPHILS PERCENT MAN 0 % (0-6); LYMPHOCYTES ABSOLUTE MAN 1.19 K/mm3 (0.84-5.20); LYMPHOCYTES PERCENT MAN 26 % (21-46); METAMYELOCYTE ABSOLUTE MAN 0.04 K/mm3 (0.00-0.00); METAMYELOCYTE PERCENT MAN 1 % (0-0); MONOCYTES PERCENT MAN 11 % (4-13); NEUTROPHILS ABSOLUTE MAN 2.84 K/mm3 (1.96-9.15); SEG NEUTROPHILS PERCENT MAN 61 % (41-73); TOTAL CELLS COUNTED 100
--- NOTE | 2020-07-28 06:17 | NUR ---
END OF SHIFT SUMMARY PT IS ALERT/ORIENTED AND ABLE TO MAKE HIS NEEDS KNOWN. PT ON 12-15L HIGH FLOW NC T/O THE NIGHT; PT VERY TACHYPNIC AND SPO2 DECLINES INTO THE 80'S WITH MINIMAL MOVEMENT (REPOSITIONING AND BOOSTING IN BED, TALKING TOO FREQUENTLY), PT DOES NOT WANT TO WEAR BIPAP; PT ABLE TO RECOVER TO 95%. AFEBRILE. HR 100-120. SBP 110-130. CONDOM CATH IN PLACE AND DRAINING TO GRAVITY. TKO INFUSING VIA PICC TO FELICIA. PLEUREX DRAIN DRESSING C/D/I. RT FEMERAL ACCESS SHOW NO SIGNS OF BLEEDING OR HEMATOMA. PT SLEPT ON AND OFF T/O SHIFT. WILL REPORT TO AM RN WHEN AVAILABLE.
--- NOTE | 2020-07-28 08:00 | NUR ---
pt laying in bed awake a/ox3, pleasant and cooperative with care, follows commands well, denies pain at this time, lungs are course in upper black, dim in bases, resp even and labored at times, sats decrease with any exertion, reports he coughed up a small bit of phlem earlier, hrr, monitor in place running sr with first degree, 2-3+ edema noted to b/l le, cap refill <3sec, vs stable, afebrile, iv is picc line to melissa site is clear and patent, btx4, abd round soft nontender, voids via condom cath, trish urine, skin has bruisings distal to picc, and cath site to right groin, is soft but some bruising, plueradex drain dressing to right lateral chest, c/d/i, able to move ext, but desats so is resting quietly, has been made pcu status, juana, call light in reach.
--- NOTE | 2020-07-28 13:10 | NUR ---
pt resting quietly in bed, states he's doing ok, Dr. Petty in to see him. maintaining sats ok. call light in reach.
--- NOTE | 2020-07-28 15:38 | NUR ---
07/28/20- per chart review with Dr. Auguste, pt will be staying through the weekend and will be talking with palliative care to come up with a plan for the future regarding his cancer and treatment. -shireen
[2020-07-28 15:59] LABS: Magnesium, Blood 1.9 mg/dL (1.6-2.4); Phosphorus, Blood 1.8 mg/dL (2.5-4.9); Potassium, Blood 4.1 mmol/L (3.5-5.5)
--- NOTE | 2020-07-28 17:14 | NUR ---
PT WAS SAT UP FOR DINNER, HIS SATS DROPPED TO THE 82 RANGES, HE WAS AGREEABLE TO HAVE THE BIPAP PLACE, THIS WAS PUT ON, RT WAS CALLED TO ADJUST SETTINGS HIS RESP ARE IN THE 40'S, SATS ARE NOW 92-95%. CALL LIGHT IN REACH.
--- NOTE | 2020-07-28 18:07 | NUR ---
DAUGHTER IN TO SEE PT. HE IS STILL ON BIPAP, ASKED HIM TO KEEP IT ON FOR A BIT LONGER, NO FURTHER CHANGES THIS SHIFT, CALL LIGHT IN REACH.
--- NOTE | 2020-07-28 19:30 | NUR ---
PT PLACED ON BEDPAN, SWITCHED FROM 15L HIGH FLOW O2 TO BIPAP, PT BECAME SOB WITH THIS ACTIVITY. SATS RETURN TO LOW 90% WITH BIPAP 12/5/100%. CALL LIGHT WITHIN REACH. BED IN LOW POSITION. HOB OF ELEVATED FOR PT COMFORT.
--- NOTE | 2020-07-28 21:20 | NUR ---
CONTACTED NASIR SHEPARD - UPDATED ON PT ANXIETY LEVEL, REVIEWED VITAL SIGNS WITH HER AND PT IS PCU STATUS - RECEIVED ORDER FOR LOW DOSE ANTIVAN - SEE EMAR. ALTERNATING BETWEEN BIPAP AND 15 L HIGH FLOW NC, PER PT COMFORT LEVEL AND PT REQUEST. PT TOLERATING BIPAP FOR SHORT PERIODS OF TIME. CALL LIGHT WITHIN REACH. BED IN LOW POSITION. FLUIDS AT BEDSIDE. PT TOLERATED PO MEDS IN APPLESAUCE TONIGHT - SEE EMAR.
--- NOTE | 2020-07-28 22:24 | NUR ---
PICC LINE - 4CM OF LINE EXPOSED, SCANT AMOUNT OF BLOOD UNDER TEGADERM DRESSING. CALL LIGHT WITHIN REACH. BED IN LOW POSITION.
--- NOTE | 2020-07-28 22:49 | NUR ---
I SPOKE TO NASIR SHEPARD - REVIEWED WITH HER PT'S VS - AND PT REPORTS A LEVEL 3/10 PAIN TO LEFT ABDOMEN - HOWEVER PT IS ON THE BIPAP AND IS UNABLE TO COMMUNICATE FURTHER DUE TO BIPAP & SOB, REGARDING HIS LEFT SIDED LOWER ABDOMINAL PAIN. DREA PLACED ORDERS - SEE EMAR.
--- NOTE | 2020-07-29 02:59 | NUR ---
PT HAS BEEN SLEEPING WITH THE BIPAP ON FOR APPX 2 HOURS NOW 12/75%. CALL LIGHT WITHIN REACH. BED IN LOW POSITION. FLUIDS AT BEDSIDE.
--- NOTE | 2020-07-29 03:30 | NUR ---
REPOSITIONED PT WITH REY RN - PT SCREAMING TO HAVE THE BIPAP OFF, PLACED O2 15L BACK ON PT - PT'S EYES ROLLED IN THE BACK OF HIS HEAD, SATS DROPPED TO 70'S, HEART RATE DROPPED TO 80'S - PLACED BIPAP BACK ON 04/22/100% AND CALLED [facility]. UPDATED [facility]LEY CASTRO WITH EVENT ABOVE. PT SLOWLY RECOVERED, AFTER 2 MINUTES SAT'S BACK TO MID 90'S, HEART RATE 110'S.
--- NOTE | 2020-07-29 03:40 | NUR ---
BIPAP SETTING 04/22/75%.
[2020-07-29 03:51] LABS: Hematocrit 31.1 % (37.0-53.0); Hemoglobin 10.9 g/dL (13.5-17.5); Mean Corpuscular HGB 30.9 pg (26.0-34.0); Mean Corpuscular Volume 88 fL (80-100); NRBC ABSOLUTE 0.13 K/mm3 (0.00-0.02); NRBC Auto 3.3 /100 WBC (0.0-0.2); Platelet Count 123 K/mm3 (150-400); RDW Coefficient Variation 12.9 % (11.7-14.2); RDW Standard Deviation 40.3 fL (35.1-46.3); Red Blood Cell Count 3.53 M/mm3 (4.30-5.90); White Blood Cell Count 3.94 K/mm3 (4.00-11.30)
[2020-07-29 04:12] LABS: Anion Gap 6 mmol/L (6-16); Blood Urea Nitrogen 16 mg/dL (8-24); Bun/Creatinine Ratio 26.1 (12.0-20.0); CO2, Blood 28 mmol/L (21-32); Chloride, Blood 113 mmol/L (98-108); Creatinine, Blood 0.61 mg/dL (0.60-1.20); Glomerular Filtration Rate >60 (60-); Glucose, Blood 114 mg/dL (70-99); Magnesium, Blood 2.1 mg/dL (1.6-2.4); Phosphorus, Blood 2.6 mg/dL (2.5-4.9); Potassium, Blood 4.2 mmol/L (3.5-5.5); Sodium, Blood 147 mmol/L (136-145)
[2020-07-29 04:36] LABS: BAND PERCENT MAN 4 % (0-8); BASOPHILS PERCENT MAN 0 % (0-2); EOSINOPHILS PERCENT MAN 0 % (0-6); LYMPHOCYTES ABSOLUTE MAN 0.78 K/mm3 (0.84-5.20); LYMPHOCYTES PERCENT MAN 20 % (21-46); METAMYELOCYTE ABSOLUTE MAN 0.07 K/mm3 (0.00-0.00); METAMYELOCYTE PERCENT MAN 2 % (0-0); MONOCYTES ABSOLUTE MAN 0.35 K/mm3 (0.16-1.47); MONOCYTES PERCENT MAN 9 % (4-13); MYELOCYTE ABSOLUTE MAN 0.07 K/mm3 (0.00-0.00); MYELOCYTE PERCENT MAN 2 % (0-0); NEUTROPHILS ABSOLUTE MAN 2.63 K/mm3 (1.96-9.15); SEG NEUTROPHILS PERCENT MAN 63 % (41-73); TOTAL CELLS COUNTED 100
--- NOTE | 2020-07-29 05:17 | NUR ---
SHIFT SUMMARY - PT HAS SLEPT WITH THE BIPAP ON THROUGHOUT MOST OF THE NIGHT, APPX 8 - 9 HOURS. PT HAD ONE EPISODE DURING THE NIGHT, WHERE HIS EYES ROLLED IN THE BACK OF HIS HEAD, AFTER REPOSITIONING PT - SEE NN AT 0330. OTHERWISE NO ACUTE CHANGES THROUGHOUT THE NIGHT. PT URINATED A LARGE AMOUNT X1 WHEN WHEN HIS CONDOM CATH CAME OFF DURING REPOSITIONING. SETTINGS ON BIPAP 12/5/75% THROUGHOUT MOST OF THE NIGHT, WITH X4 ADJUSTMENTS TO 100% FIO2 WHEN PT DESATS. PT TOLERATED LAST REPOSITIONING AND XRAY THIS AM - PT MORE ALERT, RESPONDING TO QUESTIONS ASKED AT THE TIME OF THESE TWO EVENTS. R GROIN SITE HAS REMAINED SOFT, R CHEST WALL DRESSING CD&I. WILL CONTINUE TO MONITOR UNTIL AM SHIFT CHANGE. CALL LIGHT WITHIN REACH. BED IN LOW POSITION.
--- NOTE | 2020-07-29 09:00 | NUR ---
ASSUMED CARE BEDSIDE REPORT RECIEVED. PT INITIALLY RESTING IN BED QUIETLY WITH BIPAP IN PLACE. PT AWAKENS TO VERBAL STIMULI. PT IS DROWSEY, BUT ORIENTED AND FOLLOWING DIRECTIONS APPROPRIATELY. PT BIPAP SETTINGS 12/5, FIO2 65%. PT WITH RR 40-50'S. BREATHING IS LABORED. PLEURX DRAIN TO RIGHT CHEST IN PLACE. 1L OF BLOOD TINGED FLUID DRAINED OFF AT THIS TIME. IMPROVEMENT IN SPO2 NOTED. PICC TO FELICAI IN PLACE, SALINE LOCKED. CONDOM CATH IN PLACE WITH MINIMAL AMOUNT OF DARK YELLOW OUTPUT IN DRAINAGE BAG. PT MOVES ALL EXTREMITIES, BUT IS WEAK. DESPITE REPOSITIONING, PT FAVORS RIGHT SIDE. DISCUSSED PLAN OF CARE WITH DR RIVERO. PT TO BE MADE ICU STATUS AND START PRECEDEX GTT. WILL CONTINUE TO MONITOR.
--- NOTE | 2020-07-29 11:03 | NUR ---
FAMILY DISCUSSION DR RIVERO DISCUSSED PT'S DECLINING CONDITION WITH PT DAUGHTER MATTHEW. PT DAUGHTER AT BEDSIDE AT THIS TIME. PLAN TO TRANSITION PT TO COMFORT CARE AFTER OTHER FAMILY MEMBERS GET TO VISIT PT. PT IS AWAKE AND IN AGREEMENT OF THIS. PT CURRENTLY ON BIPAP /, FIO2 60% AT THIS TIME. WILL CONTINUE TO MONITOR.
--- NOTE | 2020-07-29 12:10 | NUR ---
TRANSITION TO COMFORT CARE MULTIPLE FAMILY MEMBERS AT BEDSIDE. PT IS AWAKE AND ALERT. PT EXPRESSES ANXEITY RELATED TO SOB. PT MED WITH MORPHINE, FENTANYL PATCH, AND ATIVAN PRN PER EMAR. BIPAP REMOVED. PT PLACED ON 3L O2 NC FOR PT COMFORT PER FAMILY REQUEST. PT IS RESTING QUIETLY AT THIS TIME. WILL CONTINUE TO MONITOR.
--- NOTE | 2020-07-29 17:28 | NUR ---
SHIFT SUMMARY NO ACUTE CHANGES. PT COMFORT CARE STATUS. PT REMAINS ON 3L O2 NC FOR COMFORT. PT FAMILY REMAINS AT BEDSIDE. PICC TO FELICIA REMAINS C/D/I. PT MED WITH MORPHINE IV PRN WITH GOOD EFFECT NOTED. CONDOM CATH IN PLACE. WILL CONTINUE TO MONITOR AND REPORT OFF TO ONCOMING RN.
--- NOTE | 2020-07-29 22:35 | NUR ---
PT TRANSFERRED FROM ICU AT 1920 WITH FAMILY ON BEDSIDE. PT WAS SLEEPING COMFROTBALE IN BED. PICC ON FELICIA. TRANSFERED FROM [facility]. CONDOM CATH WAS PULLED OUT DURING TRANSFER. REPLACED A NEW CONDOM CATH. MORPHINE SULFATE ADMINSTERED VIA IV FOR AIR HUNGER. CALL LIGHT WITHIN REACH. DAUGHTER AT BEDSIDE.
--- NOTE | 2020-07-30 06:33 | NUR ---
SHIFT SUMMARY PT COMFROTABLE RESTING LAST NIGHT WITH DAUGHTER ON BEDSIDE WHO STAYED ALL NIGHT. PT WAS ON 3L 02 N/C. PT ON COMFORT CARE. ADMINSITERED MORPHINE SULFATE IV FOR AIR HUNGER TWICE DURING SHIFT. PT'S DAUGHTER CALLED MARINE GEOLOGIST AT 0400. VICTOR MANUEL HAINES RN CAME IN TO SEE PT WHILE I HAD A NEW ADMIT AT DIFFERENT ROOM. VICTOR MANUEL MYERS CALLED TOD 0405. CONTACTED AND NOTIFIED AT 0534. PT'S DAUGHTER AT BEDSIDE, LEFT AFTER SHE MOURN AND GRIEF IN ROOM. PHYLLIS WORKING ON DISCHARGE PROCESS AT THIS TIME. PT'S EYES ARE WERE ICED. DONOR TECH WILL COME IN THIS MORNING FOR DONATION, FAMILY WAS VERIFIED. DAUGHTER DENIED PASTORAL CONSULT. HOME SET UP WITH DEANN MARQUEZ ON OCEANSIDE. NO BELONGINGS IN ROOM. PICC LINE WAS DC'D, APPLIED PRESSURE.
--- NOTE | 2020-07-30 10:23 | NUR ---
ANIL NOTIFIED THAT BODY IS READY TO BE TRANSPORTED AT APROX 1015.
== END 2020-07-30 11:15 | DRG 163 ==
LOC: ER 23:11 → ICUE 07-25 00:46 → ICUW 07-25 00:46 → ICUE 07-25 02:30 → SURS 07-29 19:01
PROVIDERS: Emergency Medicine; Internal Medicine; Internal Medicine Critical Care Medicine; Internal Medicine Pulmonary Disease; ADMIT Internal Medicine
PROC: 02CQ3ZZ Extirpation of Matter from Right Pulmonary Artery, Percutaneous Approach (ICD-10-PCS; principal; 2020-07-25)
PROC: B31TYZZ Fluoroscopy of Left Pulmonary Artery using Other Contrast (ICD-10-PCS; 2020-07-25)
PROC: B31SZZZ Fluoroscopy of Right Pulmonary Artery (ICD-10-PCS; 2020-07-25)
PROC: 5A09557 Assistance with Respiratory Ventilation, Greater than 96 Consecutive Hours, Continuous Positive Airway Pressure (ICD-10-PCS; 2020-07-25)
PROC: 02HV33Z Insertion of Infusion Device into Superior Vena Cava, Percutaneous Approach (ICD-10-PCS; 2020-07-25)
DX: I26.09 Other pulmonary embolism with acute cor pulmonale (principal); J96.01 Acute respiratory failure with hypoxia; D61.810 Antineoplastic chemotherapy induced pancytopenia; J18.9 Pneumonia, unspecified organism; C34.90 Malignant neoplasm of unspecified part of unspecified bronchus or lung; J91.0 Malignant pleural effusion; R57.8 Other shock; Z66 Do not resuscitate; Z51.5 Encounter for palliative care; E78.5 Hyperlipidemia, unspecified; G40.909 Epilepsy, unspecified, not intractable, without status epilepticus; E87.6 Hypokalemia; E83.39 Other disorders of phosphorus metabolism; E86.0 Dehydration; I50.9 Heart failure, unspecified; I11.0 Hypertensive heart disease with heart failure; Z20.822 Contact with and (suspected) exposure to COVID-19; Z79.899 Other long term (current) drug therapy; Z79.82 Long term (current) use of aspirin; D47.3 Essential (hemorrhagic) thrombocythemia; Z98.890 Other specified postprocedural states; Z87.891 Personal history of nicotine dependence
CPT/HCPCS: 0241U; 36015; 36415; 36569; 37184; 37185; 51702; 71045; 71260; 74177; 75741; 76937; 80048; 80053; 81001; 83605; 83690; 83735; 83880; 84100; 84132; 84484; 85014; 85018; 85025; 85610; 85730; 87040; 87086; 93005; 93010; 93306; 93308; 93321; 94660; 96365; 96375; 99152; 99153; 99291-25; A9270; C1750; C1751; C1757; C1760; C1769; C1894; J0456; J1644; J1650; J1940; J2060; J2250; J2270; J2370; J2543; J2930; J3010; J3480; J7030; J7040; J7050; J7120; Q9967